=== PATIENT | female | born 1940 | race Caucasian/White ===

== ENCOUNTER 2016-12-14 06:14 | Inpatient (IN) | payer OTHER, MEDICARE ==
[2016-12-14] MEDS ORDERED: LIDOCAINE 1% 2 ML INJ ID PRN (06:41)
[2016-12-14] MEDS ORDERED: LR 1,000 ML IV ONE (06:41)
[2016-12-14] MEDS ORDERED: ceFAZolin 2 GM/DEXTROSE 100 ML IV ONE ×2 (07:00)
[2016-12-14] MEDS ORDERED: LORazepam 0.5 MG TAB PO ONE (07:15)
[2016-12-14] MEDS ORDERED: LORazepam 1 MG TAB PO ONE (07:15)
--- NOTE | 2016-12-14 07:29 | PDHPUP ---
History & Physical Update H&P update statement: This history and physical update is based on an assessment of the patient which was completed after admission or registration (within 24 hours), but prior to the surgery/procedure. H&P update: H&P reviewed & patient examined, no change in patient's condition since H&P completed
[2016-12-14] MEDS ORDERED: THROMBIN (BOVINE) 20,000 UNIT VIAL TP ONE (07:41)
[2016-12-14] MEDS ORDERED: BUPIVACAINE 0.25% 30 ML SDV ONE (07:41)
[2016-12-14] MEDS ORDERED: BACITRACIN 50,000 UNITS/10 ML SYR IRR ONE (07:42)
[2016-12-14] MEDS ORDERED: CHLORHEXIDINE GLUC HIBICLENS 118 ML BTL TP ONE (07:42)
[2016-12-14] MEDS ORDERED: MIDAZOLAM 2 MG/2 ML VIAL IVP ONE (08:20)
--- NOTE | 2016-12-14 08:20 | PDANEPAE ---
ANE History of Present Illness Lumbar stenosis with severe sciatic pain to right toes and unable to walk ANE Past Medical History - Cardiovascular History Hx Hypertension: Yes Hx Arrhythmias: No Hx Chest Pain: No Hx Coronary Artery / Peripheral Vascular Disease: No Hx CHF / Valvular Disease: No Hx Palpitations: No Cardiovascular History Comment: htn- well controlled c meds. denies chest pain, palp. bp runs 140/78. parents- chf, age 89, 92. - Pulmonary History Hx COPD: No Hx Asthma/Reactive Airway Disease: Yes Hx Recent Upper Respiratory Infection: No Hx Oxygen in Use at Home: No Hx Sleep Apnea: No Sleep Apnea Screening Result - Last Documented: Negative Pulmonary History Comment: ADULT ONSENT ASTHMA, ENVIROMENTAL TRIGGERS - Neurologic History Hx Cerebrovascular Accident: No Hx Seizures: No Hx Dementia: No Neurologic History Comment: rsd l arm. numbness l fingers. numbness r leg to mid -thoracic. cant distinguish hot or cold to r foot s/p c4-5 fusion. r arm- weakness, intermittent buzz. hx migraines. spinal stenosis/arthritis - Endocrine History Hx Diabetes: No - Renal History Hx Renal Disorders: No - Liver History Hx Hepatic Disorders: No - Neurological & Psychiatric Hx Hx Neurological and Psychiatric Disorders: No Neurological / Psychiatric History Comment: ANXIETY - Cancer History Hx Cancer: No - Congenital Disorder History Hx Congenital Disorders: No - GI History Hx Gastrointestinal Disorders: Yes Gastrointestinal History Comment: GERD,CONSTIPATION R/T OPIATES - Other Health History Other Health History: hx tmj. - Chronic Pain History Chronic Pain: Yes (5-6 normally) - Surgical History Prior Surgeries: lumbar 4-5 nerve root release release 02/20/14. l knee replacement 2010. appy 2008 for perfuration. c4-5 fusion 2003. 1999- r knee replacement. ANE Review of Systems Review of Systems: - Exercise capacity METS (RN): 4 METS ANE Patient History - Allergies Allergies/Adverse Reactions: No Known Allergies Allergy (Unverified 04/19/13 12:19) - Home Medications Home Medications: Albuterol [Ventolin Hfa Inhaler] 2 puffs IH Q4H PRN 11/24/16 [Last Taken ] Baclofen [Baclofen 10 mg (*)] 5 mg PO HS PRN 11/24/16 [Last Taken 12/12/16] Fluticasone Hfa 110 Mcg [Flovent 110 MCG Hfa MDI (*)] 2 puffs IH DAILY 11/24/16 [Last Taken 12/11/16] Furosemide [Lasix 20 MG (*)] 20 mg PO DAILY@12 11/24/16 [Last Taken 12/13/16] LORazepam [Ativan (*)] 0.5 mg PO DAILY PRN 11/24/16 [Last Taken 12/14/16] LORazepam [Ativan (*)] 1 mg PO DAILY 11/24/16 [Last Taken Unknown] Losartan Potassium [Cozaar] 100 mg PO DAILY@12 11/24/16 [Last Taken 12/14/16] Melatonin [Melatonin 3 MG (*)] 3 mg PO HS PRN 11/24/16 [Last Taken 12/11/16] Omeprazole Magnesium [Prilosec Otc] 20 mg PO DAILY 11/24/16 [Last Taken 12/12/16 ] Ranitidine HCl [Zantac] 150 mg PO HS PRN 11/24/16 [Last Taken 12/13/16] Simvastatin [Zocor] 20 mg PO DAILY@12 11/24/16 [Last Taken 12/12/16] Zolpidem Tartrate [Ambien 10 mg] 10 mg PO HS 11/24/16 [Last Taken 12/12/16] amLODIPine BESYLATE [Norvasc 2.5 mg (*)] 2.5 mg PO DAILY@12 11/24/16 [Last Taken 12/11/16] busPIRone [Buspar (*)] 10 mg PO DAILY 11/24/16 [Last Taken 12/11/16] diphenhydrAMINE [Benadryl 50 MG (*)] 50 mg PO DAILY PRN 11/24/16 [Last Taken ] fentaNYL [Duragesic 25 MCG Patch (*)] 25 mcg TD Q72H 11/24/16 [Last Taken ] guaiFENesin [Mucinex 600 MG (*)] 1,200 mg PO DAILY 11/24/16 [Last Taken 09/19/16 ] - NPO status NPO Since - Liquids (Date): 12/13/16 NPO Since - Liquids (Time): 18:00 NPO Since - Solids (Date): 12/13/16 NPO Since - Solids (Time): 22:00 - Smoking Hx Smoking Status: Never smoked - Family Anes Hx Family Hx Anesthesia Complications: none ANE Labs/Vital Signs - Vital Signs Blood Pressure: 168/90 Heart Rate: 70 Respiratory Rate: 14 O2 Sat (%): 98 Height: 162.56 cm Weight: 58.967 kg ANE Physical Exam - Airway Neck exam: decreased ROM Mallampati Score: Class 3 Mouth exam: normal dental/mouth exam - Pulmonary Pulmonary: no respiratory distress, clear to auscultation - Cardiovascular Cardiovascular: regular rate and rhythym, no murmur, rub, or gallop - ASA Status ASA Status: III ANE Anesthesia Plan Anesthesia Plan: general endotracheal anesthesia (Due to neck stiffness plan glidescope) Lines/Monitors: arterial line Specialized Airway: video laryngoscope
[2016-12-14] MEDS ORDERED: ONDANSETRON 4 MG/2 ML VIAL IVP ONE (08:24)
[2016-12-14] MEDS ORDERED: fentaNYL 100 MCG/2 ML INJ ONE ×3 (08:30→15:58)
[2016-12-14] MEDS ORDERED: PROPOFOL 200 MG/20 ML VIAL ONE (08:30)
[2016-12-14] MEDS ORDERED: LIDOCAINE 2% 5 ML SDV ONE (08:33)
[2016-12-14] MEDS ORDERED: SUCCINYLCHOLINE CHLORIDE*ANESTHESIA ONLY*200 MG/10 ML SYR IVP ONE (08:33)
[2016-12-14] MEDS ORDERED: ROCURONIUM 50 MG/5 ML VIAL ONE (08:34)
[2016-12-14] MEDS ORDERED: PETROLAT,WHT/MIN OIL/SOD CHL 3.5 GM OPHT.OINT ONE (08:44)
[2016-12-14] MEDS ORDERED: REMIFENTANIL HCL 1 MG VIAL ONE ×2 (09:01)
[2016-12-14] MEDS ORDERED: PROPOFOL/EMULSION 500 MG/50 ML BOTTLE IV ONE ×2 (09:01→11:24)
[2016-12-14] MEDS ORDERED: diphenhydrAMINE 25 MG CAP PO PRN (09:15)
[2016-12-14] MEDS ORDERED: MAGNESIUM HYDROXIDE 30 ML UDCUP PO PRN (09:15)
[2016-12-14] MEDS ORDERED: BISACODYL 10 MG SUPP PR PRN (09:15)
[2016-12-14] MEDS ORDERED: LACTULOSE 20 GM/30 ML UDCUP PO PRN (09:15)
[2016-12-14] MEDS ORDERED: NS 1,000 ML IV SCH (09:15)
[2016-12-14] MEDS ORDERED: POLYETHYLENE GLYCOL 3350 17 GM PKT PO PRN (09:15)
[2016-12-14] MEDS ORDERED: ONDANSETRON DISINTEGRATING 4 MG TAB PO PRN (09:15)
[2016-12-14] MEDS ORDERED: ONDANSETRON 4 MG/2 ML VIAL IVP PRN ×3 (09:15→13:49)
[2016-12-14] MEDS ORDERED: LORazepam 1 MG TAB PO PRN (09:19)
[2016-12-14] MEDS ORDERED: morphINE PCA 30 MG/30 ML PCA IV PRN (09:21)
[2016-12-14] MEDS ORDERED: NALOXONE HCL 0.4 MG/ML INJ IVP PRN ×2 (09:21→13:49)
[2016-12-14] MEDS ORDERED: DEXAMETHASONE 4 MG/ML VIAL ONE ×2 (09:28)
[2016-12-14] MEDS ORDERED: ALBUTEROL 200 PUFFS/18 GM MDI IH PRN (10:15)
[2016-12-14] MEDS ORDERED: ceFAZolin 1 GM VIAL ONE ×2 (13:01)
[2016-12-14] MEDS ORDERED: HYDROmorphONE/DILAUDID 2 MG/ML INJ ONE (13:47)
[2016-12-14] MEDS ORDERED: ONDANSETRON 4 MG/2 ML VIAL ONE (13:51)
[2016-12-14] MEDS ORDERED: ceFAZolin 2 GM/DEXTROSE 100 ML IV SCH (14:00)
--- NOTE | 2016-12-14 14:57 | POSTOPPROG ---
Post Op Note Date of Operation: 12/14/16 Surgeon: Vanessa Lares Thread Grinder: Cherelle Perez NP Anesthesiologist: Dr Rodriguez Anesthesia: GET(General Endotracheal) Pre-op Diagnosis: Lumbar stenosis, spondyliothesis Procedure: L3-4, L4-5, L5-S1 TLIF Inf/Abcess present in the surg proc area at time of surgery?: No Depth: Deep Incisional (Fascial) EBL: 100-500 Total fluids administered: see anesthesia Complications: none Drains: Jet Carver Assessment: 76 yr old s/p L3-4, L4-5, L5-S1 TLIF for right leg pain and left leg weakness Plan: -PT/OT -Pain management, patient has Fentanyl patch which was removed today prior to surgery, needs to be replaced post op -ELECTRONIC WARFARE TECHNICAL ordered if needed -Patient already fit with brace, wear when out of bed -Post op xrays pending -LENY -Follow exam -Call neurosurgery with any questions/concerns Subjective: Waking up in PACU Objective: Vital Signs Temp Pulse Resp BP Pulse Ox 36.8 C 70 14 168/90 H 98 12/14/16 07:13 12/14/16 09:40 12/14/16 09:40 12/14/16 09:40 12/14/16 09:40 Waking up in PACU PERRLA, EOMI 5/5 BUE 5/5 BLE Sensation intact to light touch BLE LENY in place Dressing CDI Allergies/Adverse Reactions: No Known Allergies Allergy (Unverified 04/19/13 12:19)
[2016-12-14] MEDS ORDERED: HYDROmorphONE/DILAUDID 1 MG/ML INJ ONE ×2 (15:10→15:57)
[2016-12-14] MEDS: fentaNYL 100 MCG/2 ML INJ IVP PRN ×3 (15:12→16:00)
[2016-12-14] MEDS: HYDROmorphONE/DILAUDID 1 MG/ML INJ IVP PRN ×4 (15:14→16:00)
[2016-12-14] MEDS: METHOCARBAMOL 750 MG TAB PO PRN (17:08)
[2016-12-14] MEDS: oxyCODONE IR 5 MG TAB PO PRN ×2 (17:08→19:36)
[2016-12-14] MEDS: fentaNYL 25 MCG PATCH TD SCH (18:01)
--- NOTE | 2016-12-14 18:40 | GOP ---
[f rep st] OPERATIVE REPORT DATE OF OPERATION: 12/14/2016 SURGEON: Tommy Lares MD NEUROSURGEON: Tommy Lares MD. PHOTO TECHNICIAN: Cherelle Perez NP PREOPERATIVE DIAGNOSIS: Degenerative spondylolisthesis L4-5; severe right foraminal stenosis L5-S1 d ue to a degenerative scoliotic tilt; spinal stenosis at L3-4; lumbar degenerative disk disease. POSTOPERATIVE DIAGNOSIS: Degenerative spondylolisthesis L4-5; severe right foraminal stenosis L5-S1 due to a degenerative scoliotic tilt; spinal stenosis at L3-4; lumbar degenerative disk disease. She also has a history of a prior laminectomy at L4-5. PROCEDURE PERFORMED: Posterolateral and intervertebral arthrodesis L3-4, L4-5, L5-S1 (32722, [id number] x 2), posterior segmental instrumentation L3, L4, L5, S1; placement of biomechanical intervertebral dev ice at L3-4, L4-5, L5-S1; same incision bone graft harvest; microscope; spinal stereotaxy for stereot actic guidance of spinal hardware. FINDINGS: ESTIMATED BLOOD LOSS: 300 cc. INDICATIONS: The patient is an elderly female with a prior history of lumbar surgery. Though succes sful, she developed increasing left leg weakness and terrible pain in the right leg principally in an L5 distribution and her images over time demonstrated the progress of spondylolisthesis of L4 on L5 that was degenerative in nature, and the development of severe left foraminal and left lateral recess stenosis at L4-5. At L5-S1 on the contralateral side, she developed an L5 on S1 tilt and severe com pression of the right L5 nerve root in the neural foramen at that level. In addition, she had spinal stenosis at L3-4, and I suggested a 3-level lumbar fusion. There is evidence of early disk protrusi on and degeneration at L2-3, but it did not warrant surgery and I explained to her that this would li mandeep be necessary in the future. The risk of screw and hardware malposition, malfunction, nerve inju ry, spinal fluid leak, continued symptoms, pseudoarthrosis, adjacent segment disease, and the possibl e need for additional more extensive spinal surgery were discussed. She knew that surgery may not al leviate her pain and that there was a small chance surgery could even make the pain worse. She wante d to proceed despite these risks. DESCRIPTION OF PROCEDURE: Patient was taken to the operating room, placed in the supine position. G eneral anesthesia was begun. She was flipped prone onto the Jet table. Care was taken to pad al l points of contact. Her back was sterilely prepped and draped in the usual fashion. The O-arm was introduced sterilely to the field. A localizing x-ray was taken. We made a midline incision from th e L2 spinous process down to the S1 spinous process. The subcutaneous tissue was dissected using Bov ie cautery down through the fascia and a subperiosteal dissection was taken down each of the lamina. The prior right L4-5 laminotomy was appreciated. We denuded the L3-4, L4-5, L5-S1 facet joints bila terally and decorticated the transverse processes and pars interarticularis bilaterally to help with our posterolateral arthrodesis. We attached the Stealth reference frame to L5. We performed an O-ar m spin. Using frameless Stealth stereotaxy, we placed pedicle screws bilaterally at L3, L4, L5, and S1. All the screws stimulated at 20 mA or greater. An O-arm spin was made. The S1 screws were bico rtical. All the screws were in excellent position without pedicle breach. We took a 90 mm dary on th e right, and a 100 mm dary and cut it 95 mm on the left. We placed the rods down over the screws. We distracted on the right at L5-S1 and on the left at L4-5. There was reduction of the spondylolisthe sis from our maneuvers on the left side at L4-5. We had nice elevation of the L5 tilt on the right a t L5-S1. We minimally distracted L3-4 just a few millimeters. We tightened all the cap screws accor ding to company specification. We removed all the soft tissue of the bone at L3, L4, L5 and S1. We harvested the L4-5 spinous process for autologous grafting purposes. We drilled bilateral laminectom y at L3-4, a left hemilaminectomy at L4-5, and a right hemilaminectomy at L5-S1. We harvested this b one for autologous grafting purposes. The operating microscope was introduced. We performed a compl ete right L5-S1 facetectomy, a complete left L4-5 facetectomy, and a complete left L3-4 facetectomy. At L5-S1, we performed a right hemilaminectomy, decompressed the right thecal sac, right S1 nerve ro ot, and completely decompressed the exiting right L5 nerve root. On the left at L4-5, we decompresse d the left thecal sac, the left L4 nerve root, and the left L5 nerve root. At L3-4, we performed ish ateral decompressions of the spinal canal and performed a decompression of the exiting left L3 nerve root and the traversing L4 nerve root. Nice decompressions were obtained. Under the microscope, we swept the thecal sac medially at L3-4, incised the L3-4 disk, removed the disk and the cartilaginous endplates. We roughened the subchondral bone to create arthrodesis there. We did likewise at L4-5 f rom the left side. We incised the disk. We removed the disk and the cartilaginous endplates. We ro ughened the subchondral bone to create arthrodesis there. On the right at L5-S1, we incised the disk . We removed the disk and the cartilaginous endplates. We roughened the subchondral bone to create arthrodesis at L5-S1. We then placed the right L5-S1 intervertebral device. We used the 7 x 28 mm d evice. We packed the disk space with autologous bone and inserted the device and expanded it under f luoroscopic guidance. We placed intervertebral trials at L3-4, L4-5, and chose an 8 x 23 mm device f or L4-5 and a 7 x 28 mm device for L3-4. We put bone autograft and BMP into the disk space. We put most of the BMP that was open for the surgery; 3/4 of it into the disk space at L3-4, L4-5, L5-S1. W e placed bone autograft. We then, under fluoroscopic guidance, placed the devices from the left side at L3-4, L4-5, and expanded them under fluoroscopic guidance. I was happy with the final position a nd the devices. We then decorticated all the remaining bone posterolaterally bilaterally with a matc h stick. All the set screws had been torqued to company specification and these were checked. We pl aced a subfascial drain. We placed bone autograft and BMP posterolaterally bilaterally from L3 to S1 , and then closed the incision in multiple layers using Vicryl sutures. Steri-Strips were applied to skin. The patient was reversed from anesthesia, extubated, and transferred to recovery room in stab le condition. There were no complications. COMPLICATIONS: None. INSTRUMENTATION USED: Click Qu[employer] Save Solera 5.5 mm system. We used a 7 x 28 mm Elevate cage at L3-4, an 8 x 23 mm cage at L4-5, and a 7 x 28 mm cage at L5-S1. COMPLICATIONS: None. We used 6 mg of bone morphogenic protein, with 4 mg in the intervertebral spaces and 2 mg posterolate ral, total. /[id number]/MODL
[2016-12-14] MEDS: ACETAMINOPHEN 500 MG TAB PO SCH ×2 (18:58→21:35)
[2016-12-14] MEDS: FUROSEMIDE 20 MG TAB PO SCH (18:58)
[2016-12-14] MEDS: LOSARTAN POTASSIUM 50 MG TAB PO SCH (18:58)
[2016-12-14] MEDS: ATORVASTATIN CALCIUM 10 MG TAB PO SCH (18:58)
[2016-12-14] MEDS: BACLOFEN 10 MG TAB PO PRN (20:02)
[2016-12-14] MEDS ORDERED: FAMOTIDINE 20 MG TAB PO PRN (21:00)
[2016-12-14] MEDS: ceFAZolin 2 GM/DEXTROSE 100 ML IV SCH (21:32)
[2016-12-14] MEDS: FAMOTIDINE 20 MG TAB PO SCH (21:35)
[2016-12-14] MEDS: SENNOSIDES/DOCUSATE SODIUM TAB PO SCH (21:36)
[2016-12-14] MEDS: ZOLPIDEM TARTRATE 5 MG TAB PO SCH (21:36)
[2016-12-15] MEDS: oxyCODONE IR 5 MG TAB PO PRN ×5 (00:44→18:56)
[2016-12-15] MEDS: METHOCARBAMOL 750 MG TAB PO PRN ×2 (00:45→21:13)
[2016-12-15] MEDS: FLUTICASONE HFA 110 MCG MDI IH SCH ×3 (01:16→10:59)
[2016-12-15 05:29] LABS: % IMMATURE GRANULYOCYTES 0.5 % (0.0-1.1); ABSOLUTE IMMATURE GRANULOCYTES 0.05 10^3/uL (0.00-0.10); ADD DIFF? NO; ADD MORPH? NO; ADD SCAN? NO; ATYPICAL LYMPHOCYTE FLAG 0 (0-99); FRAGMENT RBC FLAG 10 (0-99); HEMATOCRIT 30.4 % (38.0-47.0); HEMOGLOBIN 10.4 g/dL (12.6-16.3); LEFT SHIFT FLG 0 (0-99); LIPEMIA HEMOLYSIS FLAG 90 (0-99); MEAN CELL HEMOGLOBIN 31.9 pg (27.9-34.1); MEAN CELL HEMOGLOBIN CONCENTR. 34.2 g/dL (32.4-36.7); MEAN CELL VOLUME 93.3 fL (81.5-99.8); MEAN PLATELET VOLUME 10.9 fL (8.7-11.7); PLATELET CLUMPS FLAG 20 (0-99); PLATELET COUNT 214 10^3/uL (150-400); RED BLOOD CELL COUNT 3.26 10^6/uL (4.18-5.33); RED CELL DISTRIBUTION WIDTH 12.9 % (11.5-15.2)
[2016-12-15 06:06] LABS: ANION GAP 4 mEq/L (8-16); CALCIUM 8.7 mg/dL (8.5-10.4); CARBON DIOXIDE 24 mEq/l (22-31); CHLORIDE 104 mEq/L (97-110); CREATININE 0.9 mg/dL (0.6-1.0); GLOMERULAR FILTRATION RATE > 60; GLUCOSE 88 mg/dL (70-100); POTASSIUM 4.3 mEq/L (3.5-5.2); SODIUM 132 mEq/L (134-144)
[2016-12-15] MEDS: ACETAMINOPHEN 500 MG TAB PO SCH ×4 (06:17→22:11)
[2016-12-15] MEDS: ceFAZolin 2 GM/DEXTROSE 100 ML IV SCH (06:17)
--- NOTE | 2016-12-15 08:03 | NEUSURGPN ---
Date of Surgery: 12/14/16 Post Op Day: 1 Assessment/Plan: Assessment: 76 yr old female s/p L3-4, L4-5, L5-S1 TLIF for right leg pain and left leg weakness POD #1 Plan: -pt with expected lower back pain, she states that her right leg pain is better -brace when out of bed -PT/OT-pending this am -Pain management, patient has Fentanyl patch which was removed prior to surgery , replaced post op -INTERACTIVE MEDIA MARKETING DIRECTOR ordered if needed -Patient already fit with brace -Post op xrays pending this am -LENY-likely to remove tomorrow -Follow exam -Call neurosurgery with any questions/concerns -pt seen by Dr Lares as well Subjective: Awake and alert. NAD. Eating/drinking and voiding. No hsu/neck/chest/abd or gu complaints. No other complaints or concerns. Objective: AAO x 3, PERRLA/EOMI no droop CN 2-12 grossly intact +lt touch 5/5 BUE/BLE = LENY in place Neuro Check Frequency: per routine Urinary Catheter in Place: No - Physician Discussed Patient with .: Arnaud Patient Seen by : Arnaud Neurosurgery Physical Exam - Vitals, I&O, Labs I and O 12/14/16 12/15/16 12/16/16 05:59 05:59 05:59 Intake Total 1750 Output Total 2540 Balance -790 Weight 58.967 kg Intake: IV Intake (ml) 1750 Output: Urine (ml) 1750 Catheter 1750 Estimated Blood Loss (ml) 300 LENY Drain Output (ml) 490 Back Jet Carver 490 Other: Number of Voids Catheter 1 Vital Signs Temp Pulse Resp BP Pulse Ox 36.8 C 80 16 122/69 H 95 12/15/16 07:25 12/15/16 07:25 12/15/16 07:25 12/15/16 07:25 12/15/16 07:25 Laboratory Results 12/15/16 05:00 12/15/16 05:00 ICD10 Worksheet Patient Problems: Problems Problem Status Onset Cervical radiculitis Acute Cervical stenosis of spine Acute
[2016-12-15] MEDS ORDERED: morphINE SR 15 MG TAB PO SCH (08:15)
[2016-12-15] MEDS: SENNOSIDES/DOCUSATE SODIUM TAB PO SCH ×2 (08:37→21:13)
[2016-12-15] MEDS: LORazepam 0.5 MG TAB PO PRN ×2 (08:37→18:56)
[2016-12-15] MEDS: busPIRone 5 MG TAB PO SCH (08:37)
[2016-12-15] MEDS: FAMOTIDINE 20 MG TAB PO SCH ×2 (08:38→18:59)
[2016-12-15] MEDS ORDERED: FLUTICASONE HFA 110 MCG MDI IH SCH (09:00)
[2016-12-15] MEDS ORDERED: diphenhydrAMINE 50 MG CAP PO PRN (11:14)
[2016-12-15] MEDS: LOSARTAN POTASSIUM 50 MG TAB PO SCH (13:45)
[2016-12-15] MEDS: FUROSEMIDE 20 MG TAB PO SCH (13:45)
[2016-12-15] MEDS: ATORVASTATIN CALCIUM 10 MG TAB PO SCH (13:46)
[2016-12-15] MEDS: BACLOFEN 10 MG TAB PO PRN (13:46)
--- NOTE | 2016-12-15 14:07 | ASMTCMCOM ---
CM Note CM Note Notes: Pt had planned spinal surgery, OT rec home vs. HHC. PT eval pending. CM to follow for d/c needs. Date Signed: 12/15/2016 02:06 PM Electronically Signed By:TEGAN Garcia
[2016-12-15] MEDS: ZOLPIDEM TARTRATE 5 MG TAB PO SCH (21:13)
[2016-12-16] MEDS: oxyCODONE IR 5 MG TAB PO PRN ×6 (00:30→22:11)
[2016-12-16] MEDS: METHOCARBAMOL 750 MG TAB PO PRN ×3 (04:52→22:11)
--- NOTE | 2016-12-16 07:39 | NEUSURGPN ---
Assessment/Plan: Assessment: 76 yr old female s/p L3-4, L4-5, L5-S1 TLIF for right leg pain and left leg weakness POD #2 Plan: -pt with expected lower back pain and spasms, she states that her right leg pain is better, -brace when out of bed -PT/OT-encourage OOB -Pain management, patient has Fentanyl patch which was removed prior to surgery , replaced post op, Baclofen working better for spasms -Patient already fit with brace -Post op xrays still pending, will get today -LENY remove today -Call neurosurgery with any questions/concerns -Pt discussed with Dr. Lares Subjective: Patient doing well this morning with pain better controlled. Right leg pain much improved. Did not work with PT yesterday due to spasms, will work with them today. Denies sp, sob, fever, chills. Objective: AAO x 3, PERRLA/EOMI CN 2-12 grossly intact +lt touch 5/5 BUE/BLE = Incision c/d/i LENY in place - Physician Discussed Patient with : Arnaud Neurosurgery Physical Exam - Vitals, I&O, Labs I and O 12/15/16 12/16/16 12/17/16 05:59 05:59 05:59 Intake Total 1750 1640 Output Total 2540 935 Balance -790 705 Weight 58.967 kg Intake: Oral (ml) 1640 IV Intake (ml) 1750 Output: Urine (ml) 1750 600 Catheter 1750 Toilet 600 Estimated Blood Loss (ml) 300 LENY Drain Output (ml) 490 335 Back Jet Carver 490 335 Other: Intake Quantity Yes Sufficient Number of Voids Catheter 1 2 Toilet 1 Vital Signs Temp Pulse Resp BP Pulse Ox 37.0 C 93 16 137/73 H 94 12/16/16 07:20 12/16/16 07:20 12/16/16 07:20 12/16/16 07:20 12/16/16 07:20 Laboratory Results 12/15/16 05:00 12/15/16 05:00 ICD10 Worksheet Patient Problems: Problems Problem Status Onset Cervical radiculitis Acute Cervical stenosis of spine Acute
[2016-12-16] MEDS: FAMOTIDINE 20 MG TAB PO SCH ×2 (08:14→20:52)
[2016-12-16] MEDS: busPIRone 5 MG TAB PO SCH (08:14)
[2016-12-16] MEDS: SENNOSIDES/DOCUSATE SODIUM TAB PO SCH ×2 (08:14→20:52)
[2016-12-16] MEDS: FLUTICASONE HFA 110 MCG MDI IH SCH (08:27)
[2016-12-16] MEDS: ATORVASTATIN CALCIUM 10 MG TAB PO SCH (12:05)
[2016-12-16] MEDS: FUROSEMIDE 20 MG TAB PO SCH (12:09)
[2016-12-16] MEDS: LOSARTAN POTASSIUM 50 MG TAB PO SCH (12:09)
[2016-12-16] MEDS: ACETAMINOPHEN 500 MG TAB PO SCH ×2 (16:26→20:53)
[2016-12-16] MEDS: BACLOFEN 10 MG TAB PO PRN (16:45)
[2016-12-16] MEDS: ZOLPIDEM TARTRATE 5 MG TAB PO SCH (20:52)
[2016-12-17] MEDS: oxyCODONE IR 5 MG TAB PO PRN ×3 (06:49→18:45)
[2016-12-17] MEDS: ENOXAPARIN 40 MG/0.4 ML SYR SC SCH (08:20)
[2016-12-17] MEDS: busPIRone 5 MG TAB PO SCH (08:20)
[2016-12-17] MEDS: SENNOSIDES/DOCUSATE SODIUM TAB PO SCH ×2 (08:21→22:46)
[2016-12-17] MEDS: FAMOTIDINE 20 MG TAB PO SCH ×2 (08:21→20:37)
[2016-12-17] MEDS: fentaNYL 25 MCG PATCH TD SCH (08:21)
--- NOTE | 2016-12-17 09:17 | NEUSURGPN ---
Assessment/Plan: Assessment: 76 yr old female s/p L3-4, L4-5, L5-S1 TLIF for right leg pain and left leg weakness POD #3 Plan: -pt with expected lower back pain and spasms, she states that her right leg pain is better but did have some recurrence yesterday after PT. Also having some neuralgia paresthetica on left leg likely from positioning and should get better. -brace when out of bed -PT/OT-encourage OOB -Pain management, patient has Fentanyl patch which was removed prior to surgery , replaced post op, Baclofen working better for spasms and will schedule TID instead of Robaxin. -Patient already fit with brace -Post op xrays show good hardware placement -Call neurosurgery with any questions/concerns -Pt seen by Dr. Lares as well this morning. Subjective: Patient doing well with some recurrent right leg sciatic pain with PT yesterday and numbness in left thigh. Spasms still an issue in the afternoon. Objective: AAO x 3, PERRLA/EOMI CN 2-12 grossly intact +lt touch 5/5 BUE/BLE = Incision c/d/i - Physician Discussed Patient with : Arnaud Patient Seen by : Arnaud Neurosurgery Physical Exam - Vitals, I&O, Labs I and O 12/16/16 12/17/16 12/18/16 05:59 05:59 05:59 Intake Total 1640 500 Output Total 935 Balance 705 500 Intake: Oral (ml) 1640 500 Output: Urine (ml) 600 Toilet 600 LENY Drain Output (ml) 335 Back Jet Carver 335 Other: Intake Quantity Yes Yes Sufficient Number of Voids Catheter 2 Toilet 1 2 Vital Signs Temp Pulse Resp BP Pulse Ox 36.6 C 99 18 137/87 H 93 12/17/16 07:39 12/17/16 07:39 12/17/16 07:39 12/17/16 07:39 12/17/16 07:39 Laboratory Results 12/15/16 05:00 12/15/16 05:00 ICD10 Worksheet Patient Problems: Problems Problem Status Onset Cervical radiculitis Acute Cervical stenosis of spine Acute
[2016-12-17] MEDS: FLUTICASONE HFA 110 MCG MDI IH SCH (10:42)
[2016-12-17] MEDS: BACLOFEN 10 MG TAB PO PRN ×2 (10:50→20:36)
[2016-12-17] MEDS: LORazepam 0.5 MG TAB PO PRN (10:50)
[2016-12-17] MEDS: ATORVASTATIN CALCIUM 10 MG TAB PO SCH (12:31)
[2016-12-17] MEDS: LOSARTAN POTASSIUM 50 MG TAB PO SCH (12:31)
[2016-12-17] MEDS: FUROSEMIDE 20 MG TAB PO SCH (12:33)
[2016-12-17] MEDS: ACETAMINOPHEN 500 MG TAB PO SCH ×2 (15:46→22:48)
[2016-12-17] MEDS: ZOLPIDEM TARTRATE 5 MG TAB PO SCH (20:36)
[2016-12-18 00:24] VITALS: RESP 16
[2016-12-18] MEDS: oxyCODONE IR 5 MG TAB PO PRN ×2 (00:52→09:43)
[2016-12-18 07:44] VITALS: BP 154/77; PULSE 87; TEMP 99; O2SAT 95
[2016-12-18] MEDS: ACETAMINOPHEN 500 MG TAB PO SCH (08:16)
[2016-12-18] MEDS: FAMOTIDINE 20 MG TAB PO SCH (08:28)
[2016-12-18] MEDS: busPIRone 5 MG TAB PO SCH (08:28)
[2016-12-18] MEDS: FLUTICASONE HFA 110 MCG MDI IH SCH (08:30)
[2016-12-18] MEDS: ENOXAPARIN 40 MG/0.4 ML SYR SC SCH (08:31)
[2016-12-18] MEDS: SENNOSIDES/DOCUSATE SODIUM TAB PO SCH (08:34)
--- NOTE | 2016-12-18 08:58 | PDIAF ---
- Diagnosis Code Status: Full Code - Medication Management Discharge Medications: Medications to Continue on Transfer Albuterol [Ventolin Hfa Inhaler] 2 puffs IH Q4H PRN 11/24/16 [Last Taken ] Baclofen [Baclofen 10 mg (*)] 5 mg PO HS PRN 11/24/16 [Last Taken 12/12/16] Fluticasone Hfa 110 Mcg [Flovent 110 MCG Hfa MDI (*)] 2 puffs IH DAILY 11/24/16 [Last Taken 12/11/16] Furosemide [Lasix 20 MG (*)] 20 mg PO DAILY@12 11/24/16 [Last Taken 12/13/16] LORazepam [Ativan (*)] 0.5 mg PO DAILY PRN 11/24/16 [Last Taken 12/14/16] LORazepam [Ativan (*)] 1 mg PO DAILY 11/24/16 [Last Taken Unknown] Losartan Potassium [Cozaar] 100 mg PO DAILY@12 11/24/16 [Last Taken 12/14/16] Melatonin [Melatonin 3 MG (*)] 3 mg PO HS PRN 11/24/16 [Last Taken 12/11/16] Omeprazole Magnesium [Prilosec Otc] 20 mg PO DAILY 11/24/16 [Last Taken 12/12/16 ] Ranitidine HCl [Zantac] 150 mg PO HS PRN 11/24/16 [Last Taken 12/13/16] Simvastatin [Zocor] 20 mg PO DAILY@12 11/24/16 [Last Taken 12/12/16] Zolpidem Tartrate [Ambien 10 mg] 10 mg PO HS 11/24/16 [Last Taken 12/12/16] amLODIPine BESYLATE [Norvasc 2.5 mg (*)] 2.5 mg PO DAILY@12 11/24/16 [Last Taken 12/11/16] busPIRone [Buspar (*)] 10 mg PO DAILY 11/24/16 [Last Taken 12/11/16] diphenhydrAMINE [Benadryl 50 MG (*)] 50 mg PO DAILY PRN 11/24/16 [Last Taken ] fentaNYL [Duragesic 25 MCG Patch (*)] 25 mcg TD Q72H 11/24/16 [Last Taken ] guaiFENesin [Mucinex 600 MG (*)] 1,200 mg PO DAILY 11/24/16 [Last Taken 09/19/16 ] Acetaminophen [Tylenol ES 500 mg (*)] 1,000 mg PO Q8HRS tab 12/18/16 [Last Taken Unknown] Sennosides/Docusate Sodium [Senokot-S] 1 - 2 tab PO BID tab 12/18/16 [Last Taken Unknown] oxyCODONE IR [Oxycodone Ir (*)] 5 - 10 mg PO Q4HRS PRN 30 Days tab 12/18/16 [ Last Taken Unknown] Discharge Medications: Refer to the Discharge Home Medication list for PRN reason. - Orders Services needed: Home Care, Physical Therapy, Occupational Therapy Home Care Face to Face: I certify that this patient was under my care and that I had the required [id number] encounter meeting the encounter requirements on the discharge day. My findings support the fact that the patient is homebound as defined in Home Care Face to Face Continued: CMS Chapter 7 Medicare Benefits Manual 30.1.1 , The condition of the patient is such that there exists a normal inability to leave home and consequently, leaving home would require a considerable and taxing effort. Diet Recommendation: no restrictions on diet Diet Texture: Regular Texture Diet - Follow Up Care Current Providers and Referrals: Faustino Pires MD [Primary Care Provider] -
--- NOTE | 2016-12-18 08:58 | NEUSURGPN ---
Assessment/Plan: 76 yr old female s/p L3-4, L4-5, L5-S1 TLIF for right leg pain and left leg weakness POD #4 Plan: -brace when out of bed -PT/OT-encourage OOB -Pain management, patient has Fentanyl patch which was removed prior to surgery , replaced post op, Baclofen working better but has a history of giving her incontinence. Will send home with Baclofen and Robaxin -Patient already fit with brace -Post op xrays show good hardware placement -Call neurosurgery with any questions/concerns -Pt seen by Dr. Lares as well this morning. Subjective: bilateral hip tightness and leg ache. Objective: NAD A&Ox3 MAEx4 5/5 and equal in BUE and BLE. Incision c/d/i - Physician Patient Seen by : Arnaud Neurosurgery Physical Exam - Vitals, I&O, Labs I and O 12/17/16 12/18/16 12/19/16 05:59 05:59 05:59 Intake Total 500 1000 Balance 500 1000 Intake: Oral (ml) 500 1000 Other: Intake Quantity Yes Yes Sufficient Number of Voids Toilet 2 6 Vital Signs Temp Pulse Resp BP Pulse Ox 37.2 C 87 16 154/77 H 95 12/18/16 07:43 12/18/16 07:43 12/18/16 07:43 12/18/16 07:43 12/18/16 07:43 Laboratory Results 12/15/16 05:00 12/15/16 05:00 ICD10 Worksheet Patient Problems: Problems Problem Status Onset Cervical radiculitis Acute Cervical stenosis of spine Acute
--- NOTE | 2016-12-18 15:26 | ASMTCMCOM ---
CM Note CM Note Notes: Pt medically stable for d/c w [facility] and [facility] support. Date Signed: 12/18/2016 03:25 PM Electronically Signed By:TEGAN Garcia
--- NOTE | 2016-12-18 15:26 | ASDISCHSUM ---
Discharge Information Plan Status:Home with Home Health Medically Cleared to Leave: Discharge Date:12/18/2016 12:25 PM CM D/C Disposition:Home, Routine, Self-Care ADT D/C Disposition:Home Health Service Projected Discharge Date:12/18/2016 11:00 AM Transportation at D/C: Discharge Delay Reason: Follow-Up Date:12/18/2016 11:00 AM Discharge Slot: Final Diagnosis: Placement Information Referral Type:*Home Health Care Services Referral ID:[id number] Provider Name:[facility] Address 1:[address] Phone Number: Address 2: Fax Number: [facility]:[place] Selection Factors: State:[place] Patient Contact Information Contact Name:SALOME Relationship: Address:[address] City:[place] Alternate Phone: State/Zip Code:[place] [address] Email: Financial Information Financial Class: Primary Plan Desc:MEDICARE INPATIENT Primary Plan Number:[id number] Secondary Plan Desc:[employer]/MDR SUPPLEMENT Secondary Plan Number:[id number] Assessment Information [facility] CM Progress Note CM Note CM Note Notes: Pt had planned spinal surgery, OT rec home vs. [facility]. PT eval pending. CM to follow for d/c needs. Date Signed: 12/15/2016 02:06 PM Electronically Signed By:TEGAN Garcia [facility] CM Progress Note CM Note CM Note Notes: Pt medically stable for d/c w [facility] and [facility] support. Date Signed: 12/18/2016 03:25 PM Electronically Signed By:TEGAN Garcia Intervention Information
== END 2016-12-18 12:25 | disposition home health service (06) | DRG 460 ==
LOC: F3N 06:14
PROVIDERS: ADMIT Neurological Surgery; ATTEND Neurological Surgery
DX: M43.16 Spondylolisthesis, lumbar region (principal); M43.17 Spondylolisthesis, lumbosacral region; M51.16 Intervertebral disc disorders with radiculopathy, lumbar region; Z98.1 Arthrodesis status
CPT/HCPCS: 97116-GP; 97161-GP; 97165-GO; 97530-GO; 97530-GP; 97535-GO; C1713; G8978-GP-CJ; G8979-GP-CI; G8987-GO-CK; G8988-GO-CI; G8989-GO-CI; J0171; J0330; J0690; J1100; J1170; J1650; J2250; J2405; J2704; J3010